=== PATIENT | female | born 1960 | race Caucasian/White ===

== ENCOUNTER 2017-07-11 10:40 | Inpatient (IN) | payer OTHER ==
[~2017-07-11] VITALS: Ht 154.9 cm; Wt 61.4 kg
[~2017-07-11 10:40] MED LIST: BACTRIM1 TAB; BUSPIRONE HCL5 MG PO; FAMOTIDINE20 MG; FAMOTIDINE40 MG PO; IMDUR30 MG; ISOSORBIDE PO; LIPI20 PO; LISINOPRIL2.5 MG; LISINOPRIL2.5 MG PO; METRONIDAZOLE0.751 VG; MOBIC15 MG PO; MOTRIN600 MG PO; ONDANSETRON8 M1 PO; PRI20 PO; SIMVASTATIN10 M1; SIMVASTATIN10 M1 PO; SMZ-TMP DS1 TAB PO; ZES5 PO; ZOF4
--- NOTE | 2017-07-11 10:54 | NUR ---
TO LOBBY, NO DISTRESS NOTED. AWAITING FOR BED AVAILABILITY
--- NOTE | 2017-07-11 11:05 | NUR ---
DR. BOOKER AT BEDSIDE FOR MSE
--- NOTE | 2017-07-11 11:15 | NUR ---
PT STS UNABLE TO PROVIDE URINE SAMPLE AT THIS TIME, INST PT TO PROVIDE URINE SAMPLE SOON POSSIBLE, PT VERBALIZED UNDERSTANDING, CALL LIGHT WITHIN REACH, WILL CONTINUE TO MONITOR
--- NOTE | 2017-07-11 11:20 | NUR ---
LAB AT BEDSIDE FOR BLOOD DRAW
--- NOTE | 2017-07-11 11:28 | NUR ---
PORTABLE ULTRASOUND AT BEDSIDE AT THIS TIME
[2017-07-11 11:39] LABS: CALCIUM 8.4 mg/dL (8.5-10.1); CARBON DIOXIDE 29.7 mmol/L (21-32); CHLORIDE SERUM 107 mmol/L (98-107); CREATININE SERUM 0.7 mg/dL (0.6-1.0); GFR1 > 60 mL/min; GLUCOSE SERUM 95 mg/dL (74-106); POTASSIUM SERUM 3.7 mmol/L (3.5-5.1); SODIUM SERUM 141 mmol/L (136-145)
--- NOTE | 2017-07-11 11:42 | NUR ---
MEDICATIONS ADMINISTERED PER MD ORDER, PLEASE SEE EMAR, PT TOLERATED WELL, PT RESTING IN BED IN A POSITION OF COMFORT, CALL LIGHT WITHIN REACH
[2017-07-11 11:44] LABS: ALBUMIN 3.5 g/dL (3.4-5.0); ALKALINE PHOSPHATASE 151 U/L (46-116); ALT/SGPT 39 U/L (14-59); AST/SGOT 33 U/L (15-37); BILIRUBIN TOTAL 0.3 mg/dL (0.20-1.00); LIPASE 335 IU/L (73-393); TOTAL PROTEIN, SERUM 7.2 g/dL (6.4-8.2)
[2017-07-11 11:45] LABS: BASOPHIL % 0.6 % (0-2); PLATELET COUNT 210 x10^3mcL (130-400)
--- NOTE | 2017-07-11 12:21 | NUR ---
PT AMBULATED WITH STEADY GAIT TO RESTROOM TO PROVIDE A URINE SAMPLE AT THIS TIME
--- NOTE | 2017-07-11 12:29 | NUR ---
PT RESTING IN BED IN A POSITION OF COMFORT, IVF CURRENTLY INFUSING AT THIS TIME, URINE COLLECTED AND SENT TO LAB, CALL LIGHT WITHIN REACH
[2017-07-11 12:51] LABS: microscopic required? YES; urine erythrocyte TRACE (NEGATIVE)
--- NOTE | 2017-07-11 13:07 | NUR ---
PER PT NO CHANGE IN HER HOME MEDICATIONS FROM LAST YEAR THAT WAS KEPT ON CHART
--- NOTE | 2017-07-11 13:34 | NUR ---
MRSA SWAB COLLECTED AND SENT TO LAB
--- NOTE | 2017-07-11 13:43 | NUR ---
REPORT GIVEN TO NITO BAUMAN WHO TOOK REPORT FOR NITO NGUYEN TELE FLOOR TO ASSUME CARE OF PT AFTER TRANSPORT
--- NOTE | 2017-07-11 14:18 | NUR ---
REC'D PT FROM ER VIA [facility]. PT IS AAOX4. C/O MILD DIZZINESS AND FONTAINE. TELE #26 SR WITH ELEVATED T-WAVE. PT C/O 8/10 CHEST PAIN. LUNG SOUNDS CLEAR. NO SOB NOTED. IV NOTED TO LAC. INTACT AND PATENT. ORIENTED PT TO CALL LIGHT. BED IN LOWEST POSITION. WILL ENDORSE TO PRIMARY RN.
[2017-07-11 14:27] VITALS: BP 131/56
[2017-07-11 14:41] LABS: MAGNESIUM 1.8 mg/dL (1.8-2.4); PHOSPHOROUS 2.9 mg/dL (2.5-4.9); T3 TOTAL 0.98 ng/mL
[2017-07-11 14:49] LABS: FREE T4 1.06 ng/dL (0.76-1.46); FREE THYROXINE INDEX 2.7 ug/dL (1.4-4.5); T4(THYROXINE) 7.4 ug/dL (4.7-13.3)
[2017-07-11 15:14] VITALS: BP 131/56
--- NOTE | 2017-07-11 17:59 | NUR ---
PT RESTING IN BED WITH NO APPARENT SIGNS OF DISTRESS. DENIES CHEST PAIN/PRESSURE AT THIS TIME. DENIES PAIN AT THIS TIME. RESPIRATIONS EQUAL AND UNLABORED BILAT. DENIES SOB. BED IN LOW POSITION. EDUCATED ON USING CALL LIGHT. CALL LIGHT IN REACH.
--- NOTE | 2017-07-11 19:32 | NUR ---
REC'D PT FROM DAY NURSE. PT RESTING IN BED. AAOX4, SPEECH CLEAR, ETHIOPIAN SPEAKING, FOLLOWS COMMANDS. NO SIGNS OF DISTRESS NOTED. BREATHING EVEN/UNLABORED ON RA. ON TELE 26. DENIES CP, DIZZINESS, OR PALPITATIONS. NO EDEMA NOTED. DENIES ABD PAIN, TENDERNESS, OR N/V. VOIDING FREELY. AMBULATORY. SKIN INTACT. DENIES PAIN OR DISCOMFORT AT THIS TIME. ONLY C/O HUNGER. WILL GIVE FOOD AFTER CHECKING BLOOD SUGAR. IV TO LAC PATENT AND INFUSING, SITE WNL. CALL LIGHT WITHIN EACH, BED AT LOWEST POSITION. WILL CONTINUE TO MONITOR.
--- NOTE | 2017-07-11 20:38 | NUR ---
PT ON CCHO DIET. BS 128. SANDWICH GIVEN.
[2017-07-11 21:53] VITALS: BP 109/70
--- NOTE | 2017-07-12 00:07 | NUR ---
PT RESTING IN BED WITH EYES CLOSED. NO SIGNS OF DISTRESS NOTED. BREATHING EVEN/UNLABORED ON RA. CALL LIGHT WITHIN REACH, BED AT LOWEST POSITION. WILL CONTINUE TO MONITOR.
--- NOTE | 2017-07-12 02:32 | NUR ---
PT AWAKE. RESTING IN BED. C/O FONTAINE 08/08. TYLENOL GIVEN PER ORDER. NO SIGNS OF DISTRESS NOTED. BREATHING EVEN/UNLABORED ON RA. NO OTHER COMPLAINTS AT THIS TIME. UDS COLLECTED. CALL LIGHT WITHIN REACH, BED AT LOWEST POSITION. WILL CONTINUE TO MONITOR.
[2017-07-12 02:57] LABS: AMPHETAMINE QUAL UR POSITIVE (NEG <=1000)
--- NOTE | 2017-07-12 05:42 | NUR ---
PT RESTING IN BED. C/O MILD FONTAINE AND MILD STERNAL CP, BOTH TOLERABLE AT THIS TIME. NO SIGNS OF DISTRESS NOTED. BREATHING EVEN/UNLABORED ON RA. BS 87, NO COVERAGE. NO SIGNIFICANT CHANGES DURING SHIFT. CALL LIGHT WITHIN REACH, BED AT LOWEST POSITION. WILL ENDORSE TO DAY NURSE.
--- NOTE | 2017-07-12 07:55 | NUR ---
AWAKE,ALERT AND ORIENTED. DENIES CHEST PAIN AT THIS TIME. CALL LIGHT W/ IN REACH,NO ACUTE DISTRESS NOTED. CONT. IV FLUIDS AND IV ANTIBIOTIC ORDERED. AMBULATED IN THE BATHROOM AND VOIDING WELL.WILL CONT. PLAN OF CARE.
--- NOTE | 2017-07-12 08:55 | NUR ---
DR. SALAS WAS HERE AND MADE ROUNDS W/ OTHER MEDICAL STAFF AND UPDTATED PT. PLAN OF CARE.
--- NOTE | 2017-07-12 09:00 | NUR ---
PT. C/O HEAD ACHE MEDICATED W/ TYLENOL ORDERED.MADE PT. COMFORTABLE IN BED. CALL LIGHT W/ IN REACH.
[2017-07-12 09:15] VITALS: BP 131/81
[2017-07-12 13:23] VITALS: BP 129/72
--- NOTE | 2017-07-12 15:30 | NUR ---
PT. C/O FONTAINE AGAIN AND SHE REQUESTED STRONGER MEDS GIVEN NORCO ORDERED. AND MADE COMFORTABLE IN BED.
[2017-07-12 16:29] VITALS: BP 124/80
--- NOTE | 2017-07-12 17:00 | NUR ---
PT, SLEEP WELL THE WHOLE AFTERNOON AFTER PAIN MEDS WAS GIVEN. NO ACUTE DISTRESS NOTED.CALL LIGHT W/ IN REACH.
--- NOTE | 2017-07-12 18:24 | NUR ---
PT. RESTING COMFORTABLY IN BED. DENIES ANY PAIN ,CALL LIGHT W/ IN REACH.
--- NOTE | 2017-07-12 20:00 | NUR ---
RECEIVED PT IN BED, ALERT AND ORIENTED. ABLE TO VERBALIZE NEEDS AND FOLLOW COMMANDS.DENIES HEADACHE/DIZZINESS. RESP. EVEN AND UNLABORED. ON ROOM AIR, NO DISTRESS NOTED. AFEBRILE AND VITAL SIGNS STABLE. SB/SR ON THE MONITOR,DENIES CHEST PAIN OR ANY DISCOMFORT AT THIS TIME.IVF, NS AT 60ML/HR, INATCT AND INFUSING VIA LAC, SITE CLEAR. AMBULATORY. VOIDING FREELY. ASSISTED WITH HS CARE. CALL LIGHT WITHIN REACH. WILL CONTINUE TO MONITOR.
[2017-07-12 21:12] VITALS: BP 108/60
--- NOTE | 2017-07-13 00:34 | NUR ---
APPEARS ASLEEP, WITH EYES CLOSED, EASILY AROUSABLE. RESP. EVEN AND UNLABORED. NO DISTRESS NOTED. WILL CONTINUE TO MONITOR.
[2017-07-13 05:34] VITALS: BP 120/81
--- NOTE | 2017-07-13 06:38 | NUR ---
SLEPT WELL. NO COMPLAINTS NOTED. AFEBRILE AND VITAL SIGNS STABLE. RESP. EVEN AND UNLABORED. NO DISTRESS NOTED.DENIES CP OR ANY DISCOMFORT AT THIS TIME. IVF INTACT AND INFUSING WELL, SITE CLEAR.KEPT COMFORTABLE. WILL ENDORSE TO INCOMING NURSE.
[2017-07-13 07:17] LABS: BASOPHIL % 0.4 % (0-2); PLATELET COUNT 194 x10^3mcL (130-400); RED CELL DISTRIBUTION WIDTH 13.6 % (11.5-14.5)
--- NOTE | 2017-07-13 07:55 | NUR ---
AWAKE,ALERT AND ABLE TO VERBALIZED NEEDS.AMBULATED IN THE BATHROOM AND VOIDING WELL,DENIES ANY PAIN AT THIS TIME. CALL LIGHT W/ IN REACH.CONT. IV FLUIDS ORDERED.WILL CONT. PLAN OF CARE.
[2017-07-13 08:30] VITALS: BP 110/69
--- NOTE | 2017-07-13 09:00 | NUR ---
DR. SALAS HERE W/ OTHER MEDICAL STAFFS MADE ROUNDS AND UPDATED PT. PLAN OF CARE.
[2017-07-13] MEDS ORDERED: LAC PO (10:52)
[2017-07-13] MEDS ORDERED: AUG500 PO (10:52)
--- NOTE | 2017-07-13 12:30 | NUR ---
AMBULATED IN [address] SHILOH. WELL NO ACUT EDISTRESS NOTED.
--- NOTE | 2017-07-13 13:00 | NUR ---
DR. TRACY HERE AND SEEN THE PT. W/ NEW ORDERS OK PT. TO GO HOME AND PT. AWARE AND AWAITING FOR RIDE.
[2017-07-13] MEDS ORDERED: MOT600 PO (13:26)
--- NOTE | 2017-07-13 14:30 | NUR ---
DISCHARGED INSTRUCTIONS AND PRESCRIPTION GIVEN AND DISCUSSED TO PT/DAUGHTER AND VERBALIZED UNDERSTANDING OF INSTRUCTION GIVEN . PT. WENT HOME W/ STABLE CONDITION AMBULATORY ACC. W/ HER DAUGHTER NO ACUTE DISTRESS NOTED ,ESCORTED BY [facility]ERIN[facility] SMALL ANIMAL IN THE LOBBY.
== END 2017-07-13 14:21 | disposition home or self-care (01) | DRG 243 ==
LOC: ED 10:40 → DU 13:01
PROVIDERS: Emergency Medicine; ADMIT Family Medicine
DX: K21.9 Gastro-esophageal reflux disease without esophagitis (principal); E11.65 Type 2 diabetes mellitus with hyperglycemia; K76.0 Fatty (change of) liver, not elsewhere classified; M94.0 Chondrocostal junction syndrome [Tietze]; E83.39 Other disorders of phosphorus metabolism; E44.1 Mild protein-calorie malnutrition; N39.0 Urinary tract infection, site not specified; F11.10 Opioid abuse, uncomplicated; F15.10 Other stimulant abuse, uncomplicated; I10 Essential (primary) hypertension; E78.00 Pure hypercholesterolemia, unspecified; Z53.29 Procedure and treatment not carried out because of patient's decision for other reasons; E03.9 Hypothyroidism, unspecified; Z88.6 Allergy status to analgesic agent; Z79.899 Other long term (current) drug therapy; Z68.25 Body mass index [BMI] 25.0-25.9, adult
CPT/HCPCS: 82962; 83880; 84439; J0696; J1956; J3010; J7030; Q0092

== ENCOUNTER 2017-08-25 07:09 | Emergency (ER) | payer OTHER ==
[~2017-08-25] VITALS: Ht 152.4 cm; Wt 64.1 kg
[~2017-08-25 07:09] MED LIST changes: +AUG500 PO; +LAC PO; +MOT600 PO
[2017-08-25 08:54] VITALS: BP 132/78
== END 2017-08-25 09:16 | disposition home or self-care (01) ==
LOC: ED 07:09
DX: S29.9XXA Unspecified injury of thorax, initial encounter (principal); E89.0 Postprocedural hypothyroidism; F12.90 Cannabis use, unspecified, uncomplicated; E78.00 Pure hypercholesterolemia, unspecified; F17.210 Nicotine dependence, cigarettes, uncomplicated; Z71.6 Tobacco abuse counseling; W20.8XXA Other cause of strike by thrown, projected or falling object, initial encounter; Y93.89 Activity, other specified; Y92.89 Other specified places as the place of occurrence of the external cause; Y99.8 Other external cause status
CPT/HCPCS: 99406

== ENCOUNTER 2018-06-27 14:04 | Emergency (ER) | payer OTHER ==
[~2018-06-27] VITALS: Ht 152.4 cm; Wt 64.4 kg
[2018-06-27 14:13] VITALS: Ht 152.4 cm; Wt 64.4 kg
[2018-06-27 15:46] LABS: BASOPHIL % 0.4 % (0-2); PLATELET COUNT 202 x10^3mcL (130-400); RED CELL DISTRIBUTION WIDTH 13.8 % (11.5-14.5)
[2018-06-27 15:56] LABS: CALCIUM 8.1 mg/dL (8.5-10.1); CARBON DIOXIDE 32.6 mmol/L (21-32); CHLORIDE SERUM 107 mmol/L (98-107); CREATININE SERUM 0.7 mg/dL (0.6-1.0); GFR1 > 60 mL/min; GLUCOSE SERUM 112 mg/dL (74-106); POTASSIUM SERUM 4.2 mmol/L (3.5-5.1); SODIUM SERUM 143 mmol/L (136-145)
[2018-06-27 16:04] LABS: ALKALINE PHOSPHATASE 134 U/L (46-116); ALT/SGPT 32 U/L (14-59); AMYLASE 88 U/L (25-115); AST/SGOT 22 U/L (15-37); BILIRUBIN TOTAL 0.2 mg/dL (0.20-1.00); LIPASE 413 IU/L (73-393); TOTAL PROTEIN, SERUM 6.5 g/dL (6.4-8.2)
[2018-06-27 16:21] LABS: ALBUMIN 3.2 g/dL (3.4-5.0)
[2018-06-27 18:56] LABS: UA SPECIFIC GRAVITY 1.025 (1.005-1.035); microscopic required? YES; urine erythrocyte NEGATIVE (NEGATIVE)
[2018-06-27 19:19] VITALS: BP 101/63
== END 2018-06-27 19:19 | disposition home or self-care (01) ==
LOC: ED 14:04
PROVIDERS: Specialist
DX: R10.33 Periumbilical pain (principal); R11.10 Vomiting, unspecified; R19.7 Diarrhea, unspecified
CPT/HCPCS: J3010; J7030; Q0162

== ENCOUNTER 2019-01-08 10:58 | Emergency (ER) | payer OTHER ==
[~2019-01-08] VITALS: Ht 162.6 cm; Wt 64.6 kg
[2019-01-08 11:22] VITALS: Ht 162.6 cm; Wt 64.6 kg
[2019-01-08 13:21] VITALS: BP 141/73
== END 2019-01-08 13:22 | disposition home or self-care (01) ==
LOC: ED 10:58
DX: S22.019A Unspecified fracture of first thoracic vertebra, initial encounter for closed fracture (principal); S39.012A Strain of muscle, fascia and tendon of lower back, initial encounter; S13.9XXA Sprain of joints and ligaments of unspecified parts of neck, initial encounter; I10 Essential (primary) hypertension; E78.00 Pure hypercholesterolemia, unspecified; Z88.6 Allergy status to analgesic agent; V49.88XA Car occupant (driver) (passenger) injured in other specified transport accidents, initial encounter; Y93.I9 Activity, other involving external motion; Y92.413 State road as the place of occurrence of the external cause; Y99.8 Other external cause status
CPT/HCPCS: J2270; Q0162

== ENCOUNTER 2019-01-21 23:38 | Inpatient (IN) | payer OTHER ==
[~2019-01-21] VITALS: Ht 160 cm; Wt 67.1 kg
[2019-01-21 23:50] VITALS: Ht 160 cm; Wt 67.1 kg
--- NOTE | 2019-01-21 23:56 | NUR ---
EKG IN PROGRESS IN TRIAGE.
--- NOTE | 2019-01-22 01:21 | NUR ---
PT BIB SELF FOR C/O CHEST PAIN THAT BEGAN EARLIER AROUND 1700. PT DENIES ANY TRAUMA TO THE AREA OR ANYTHING TO PROVOKE THE PAIN. PT REPORTS THE PAIN FEELING " HEAVY" / "PRESSURE". PT REPORTS THIS HAS HAPPENED ONE OTHER TIME A LONG TIME AGO AND STS IT WAS DUE TO HER ANXIETY. PT REPORTS SOME SOB DUE TO PAIN FROM CHEST. PT IS A/O X4. PT IS LAYING IN GURNEY IN POSITION OF COMFORT. PT RESPS ARE E/U. PT IS ABLE TO AMBULATE SLOWLY WITH STEADY GAIT. MSE COMPLETED BY DR MARTE
[2019-01-22 01:24] LABS: BASOPHIL % 0.5 % (0-2); PLATELET COUNT 199 x10^3mcL (130-400); RED CELL DISTRIBUTION WIDTH 13.2 % (11.5-14.5)
[2019-01-22 01:32] LABS: CALCIUM 8.3 mg/dL (8.5-10.1); CARBON DIOXIDE 28.2 mmol/L (21-32); CHLORIDE SERUM 108 mmol/L (98-107); CREATININE SERUM 0.8 mg/dL (0.6-1.0); GFR1 > 60 mL/min; GLUCOSE SERUM 154 mg/dL (74-106); POTASSIUM SERUM 3.8 mmol/L (3.5-5.1); SODIUM SERUM 143 mmol/L (136-145)
[2019-01-22 01:40] LABS: ALKALINE PHOSPHATASE 152 U/L (46-116); ALT/SGPT 50 U/L (14-59); AMYLASE 61 U/L (25-115); AST/SGOT 30 U/L (15-37); BILIRUBIN TOTAL 0.25 mg/dL (0.20-1.00); CHOLESTEROL 173 mg/dL (<200); HDL CHOLESTEROL 50 mg/dL (40-60); LIPASE 302 IU/L (73-393); T4(THYROXINE) 6.3 ug/dL (4.7-13.3); TOTAL PROTEIN, SERUM 6.7 g/dL (6.4-8.2)
[2019-01-22 01:41] LABS: ALBUMIN 3.3 g/dL (3.4-5.0)
[2019-01-22] MEDS ORDERED: CHILDREN'S100 MG/52 (02:22)
--- NOTE | 2019-01-22 02:45 | NUR ---
PT REPORT GIVEN TO KAYLA BEAUCHAMP. QUESTIONS AND CONCERNS ADDRESSED.
[2019-01-22 03:20] VITALS: BP 114/61
--- NOTE | 2019-01-22 03:20 | NUR ---
ADMITTED THE PATIENT TO THE FLOOR,PT CAME TO THE FLOOR VIA [facility]ER[facility] AND WAS ACCOMPANIED BY THE NURSE,PT WAS RECIEVED TO THE BED MADE COMFORTABLE IN BED,ON INITIAL ASSESSMENT PATIENT IS AWAKE ALERT AND ORIENTED,REG RESP NO SOB,PT WAS PUT ON TELE MONITOR AND IN NSR NO ECTOPY OR CHEST PAIN AT THIS TIME,PT HAD HL TO THE HAND WITH THE SITE PATENT AND INTACT,PT ORIENTED TO THE CALL LIGHT BED CONTROL TELE MONITOR AND BATHROOM,PT VERBALIZED UNDERSTANDING,CALL LIGHT MADE CLOSE TO THE PATIENT AND WILL CONTINUE TO MONITOR.
--- NOTE | 2019-01-22 06:02 | NUR ---
PT WITH C/O OF H/A ARCHING INNATURE AT THE SCALE OF 510,PT WAS MEDICATED WITH TYLENOL 650 MG PO ORDER AND WILL CONTINUE TO MONITOR.
--- NOTE | 2019-01-22 08:00 | NUR ---
A/A/OX4. TELE#22; SR; HR = 69; NO C/O SHAUNNA PAIN NOW. NO RESP DSITRESS ON RA. O2 SAT 97%. HAD LIGHT BREAKFAST, HOLD LUNCH FOR STRESS TEST. IVHL'D TO [facility]. SITE CLEAN. AMBULATORY. CALL LIGHT IN REACH.
[2019-01-22 10:34] VITALS: BP 112/74
--- NOTE | 2019-01-22 12:00 | NUR ---
C/O DIZZINESS. BS = 65; APPLE JUICE AND CRAKERS GIVEN. CONTINUE MONITOR.
[2019-01-22 14:53] LABS: AMPHETAMINE QUAL UR NONE DETECTED (See below)
--- NOTE | 2019-01-22 16:23 | NUR ---
C/O HEADACHE ON 03/08. NO FEVER. TELENOL 650MG PO GIVEN. CONTINUE MONITOR.
--- NOTE | 2019-01-22 17:04 | NUR ---
STATED HEADACHE RELEAVED. AMBULATED IN [address]. GAIT STEADY.
[2019-01-22 17:36] LABS: microscopic required? NO
[2019-01-22 17:39] LABS: UA SPECIFIC GRAVITY >=1.030 (1.005-1.035); urine erythrocyte NEGATIVE (NEGATIVE)
[2019-01-22 18:07] VITALS: BP 110/64
--- NOTE | 2019-01-22 19:00 | NUR ---
CONDITION STABLE. DENIED CHEST PAIN. BRP. VOID FREELY. BM X2. ENODRSED CARE TO NOC NURSE.
--- NOTE | 2019-01-22 19:16 | NUR ---
DR. NGUYỄN CALLED TO ASK RESULTS OF STRESS TEST. REPORTED GIVEN. DR. NGUYỄN CLEARIFIED PATIENT OK TO DISCHARGE HOME. ENDORSED CARE TO [facility] NURSE.
--- NOTE | 2019-01-22 20:25 | NUR ---
PT RECIEVED AAO REG RESP NO SOB V/S STABLE,KEPT CLEAN AND DRY TO TOUCH,PT ON TELE MONITOR AND IN NSR NO ECTOPY OR CHEST PAIN AT THIS TIME,MADE COMFORTABLE IN BED,PT ON TELE MONITOR AND INNSR NO ECTOPY OR CHEST PAIN AT THIS TIME,CALL LIGHT EASY REACHED AND WILL CONTINUE TO MONITOR.
[2019-01-22 21:22] VITALS: BP 105/53
--- NOTE | 2019-01-23 02:24 | NUR ---
PT SLEEPING SOUNDLY KEPT CLEAN AND DRY TO TOUCH AND WILL CONTINUE TO MONITOR.
[2019-01-23 05:45] VITALS: BP 107/65
--- NOTE | 2019-01-23 06:32 | NUR ---
PT HAD A RESTING NIGHT NO CHANGE AT THIS TIME,WILL CONTINUE TO MONITOR.
--- NOTE | 2019-01-23 07:20 | NUR ---
RCD REPORT FROM NITO GARZA. PATIENT ASLEEP, REG RESPS. SALINE LOCK TO LFA. BED LOW, CALL LIGHT WITHIN REACH. WILL MONITOR.
--- NOTE | 2019-01-23 07:50 | NUR ---
SHIFT ASSESSMENT PERFORMED AND DOCUMENTED. WILL MONITOR.
--- NOTE | 2019-01-23 08:02 | NUR ---
PATIENT PROVIDED WITH ICE PACK FOR HEADACHE, 06/08, PER HER REQUEST. WILL BRING PAIN MEDICATION WHEN TIME, PATIENT AGREES. PATIENT SITTING UP IN BED EATING BREAKFAST. ADJUSTED TEMPERATURE IN ROOM HEATER WAS QUITE HIGH, PATIENT APPRECIATIVE.
--- NOTE | 2019-01-23 08:45 | NUR ---
PATIENT AMBULATING IN HALLWAY. REPORTS HEADACHE IS IMPROVED AT THIS TIME.
[2019-01-23 09:31] VITALS: BP 106/68
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
[2019-01-23 11:49] VITALS: BP 106/68
--- NOTE | 2019-01-23 12:50 | NUR ---
VERBAL AND WRITTEN DISCHARGE INSTRUCTIONS PROVIDED TO THE PATIENT REGARDING CHEST PAIN, OUTPATIENT FOLLOW UP, HEADACHE PAIN, SIGNS AND SYMPTOMS TO SEEK EMERGENCY MEDICAL ATTENTION. PATIENT VERBALIZED UNDERSTANDING OF ALL INSTRUCTIONS. IV TO LEFT WRIST REMOVED, SITE WITHOUT COMPLICATIONS. TELE 22 REMOVED, RETURNED TO TELEMETRY. PATIENT IN NO ACUTE DISTRESS. SON TO PICK PATIENT UP. PATIENT TO CALL WHEN READY TO GO.
== END 2019-01-23 13:00 | disposition home or self-care (01) | DRG 203 ==
LOC: ED 23:38 → DU 01-22 02:05
PROVIDERS: Emergency Medicine; ADMIT Internal Medicine Pulmonary Disease
DX: R07.89 Other chest pain (principal); E78.00 Pure hypercholesterolemia, unspecified; E78.5 Hyperlipidemia, unspecified; R51 Headache; I10 Essential (primary) hypertension; F17.210 Nicotine dependence, cigarettes, uncomplicated; E89.0 Postprocedural hypothyroidism; R73.03 Prediabetes
CPT/HCPCS: 82962; 83880; 99406; A9500; J1650; J2785; Q0092

== ENCOUNTER 2019-01-26 23:47 | Emergency (ER) | payer OTHER ==
[~2019-01-26] VITALS: Ht 162.6 cm; Wt 68.0 kg
[~2019-01-26 23:47] MED LIST changes: +CHILDREN'S100 MG/52
[2019-01-26 23:53] VITALS: Ht 162.6 cm; Wt 68.0 kg
[2019-01-27 02:03] VITALS: BP 106/59
== END 2019-01-27 02:03 | disposition home or self-care (01) ==
LOC: ED 23:47
DX: R51 Headache (principal); G89.29 Other chronic pain; I10 Essential (primary) hypertension; E78.00 Pure hypercholesterolemia, unspecified; Z98.890 Other specified postprocedural states; Z88.6 Allergy status to analgesic agent; V49.69XA Unspecified car occupant injured in collision with other motor vehicles in traffic accident, initial encounter; Y93.I9 Activity, other involving external motion; Y92.413 State road as the place of occurrence of the external cause; Y99.8 Other external cause status
CPT/HCPCS: J2270; Q0162

== ENCOUNTER 2019-03-08 00:33 | Emergency (ER) | payer OTHER ==
[~2019-03-08] VITALS: Ht 154.9 cm; Wt 64.9 kg
[2019-03-08 00:35] VITALS: Ht 154.9 cm; Wt 64.9 kg
[2019-03-08 01:11] LABS: PLATELET COUNT 228 x10^3mcL (130-400)
[2019-03-08 01:13] LABS: CALCIUM 8.7 mg/dL (8.5-10.1); CARBON DIOXIDE 26.4 mmol/L (21-32); CREATININE SERUM 1.1 mg/dL (0.6-1.0); POTASSIUM SERUM 3.2 mmol/L (3.5-5.1)
[2019-03-08 01:18] LABS: BILIRUBIN TOTAL 0.5 mg/dL (0.20-1.00); TOTAL PROTEIN, SERUM 7.4 g/dL (6.4-8.2)
[2019-03-08 03:32] VITALS: BP 106/60
== END 2019-03-08 03:32 | disposition home or self-care (01) ==
LOC: ED 00:33
PROVIDERS: Emergency Medicine
DX: K29.00 Acute gastritis without bleeding (principal); R51 Headache; I10 Essential (primary) hypertension; E78.00 Pure hypercholesterolemia, unspecified; Z98.890 Other specified postprocedural states; Z88.6 Allergy status to analgesic agent
CPT/HCPCS: J2765; Q0092

== ENCOUNTER 2019-06-06 04:40 | Emergency (ER) | payer OTHER ==
[~2019-06-06] VITALS: Ht 154.9 cm; Wt 68.0 kg
[2019-06-06 04:45] VITALS: Ht 154.9 cm; Wt 68.0 kg
[2019-06-06 08:08] VITALS: BP 110/68
== END 2019-06-06 08:27 | disposition home or self-care (01) ==
LOC: ED 04:40
DX: R10.9 Unspecified abdominal pain (principal); R19.7 Diarrhea, unspecified; R11.2 Nausea with vomiting, unspecified; I10 Essential (primary) hypertension; E78.00 Pure hypercholesterolemia, unspecified; F12.90 Cannabis use, unspecified, uncomplicated; Z98.890 Other specified postprocedural states; Z88.6 Allergy status to analgesic agent
CPT/HCPCS: J0500

== ENCOUNTER 2019-08-21 16:06 | Emergency (ER) | payer OTHER ==
[~2019-08-21] VITALS: Ht 154.9 cm; Wt 64.4 kg
[2019-08-21 16:11] VITALS: Ht 154.9 cm; Wt 64.4 kg
[2019-08-21 20:53] VITALS: BP 117/82
== END 2019-08-21 20:53 | disposition home or self-care (01) ==
LOC: ED 16:06
DX: M25.511 Pain in right shoulder (principal); X50.0XXA Overexertion from strenuous movement or load, initial encounter; Y93.89 Activity, other specified; Y92.89 Other specified places as the place of occurrence of the external cause; Y99.8 Other external cause status

== ENCOUNTER 2019-10-11 06:43 | Emergency (ER) | payer OTHER ==
[~2019-10-11] VITALS: Ht 154.9 cm; Wt 62.6 kg
[2019-10-11 07:03] VITALS: Ht 154.9 cm; Wt 62.6 kg
[2019-10-11 09:47] VITALS: BP 122/69
== END 2019-10-11 10:05 | disposition home or self-care (01) ==
LOC: ED 06:43
DX: J11.1 Influenza due to unidentified influenza virus with other respiratory manifestations (principal); I10 Essential (primary) hypertension; E78.00 Pure hypercholesterolemia, unspecified; Z88.6 Allergy status to analgesic agent; Z98.890 Other specified postprocedural states; Z90.89 Acquired absence of other organs
CPT/HCPCS: 87804; Q0092

== ENCOUNTER 2019-12-22 15:00 | Emergency (ER) | payer OTHER ==
[~2019-12-22] VITALS: Ht 154.9 cm; Wt 68.9 kg
[2019-12-22 15:26] VITALS: Ht 154.9 cm; Wt 68.9 kg
[2019-12-22 18:18] VITALS: BP 128/68
== END 2019-12-22 18:18 | disposition home or self-care (01) ==
LOC: ED 15:00
DX: M75.31 Calcific tendinitis of right shoulder (principal); M25.562 Pain in left knee; I10 Essential (primary) hypertension; E78.00 Pure hypercholesterolemia, unspecified; E03.9 Hypothyroidism, unspecified; Z90.89 Acquired absence of other organs; Z98.890 Other specified postprocedural states; Z88.6 Allergy status to analgesic agent
CPT/HCPCS: J1100; J1885

== ENCOUNTER 2020-01-01 10:17 | Emergency (ER) | payer OTHER ==
[~2020-01-01] VITALS: Ht 157.5 cm; Wt 69.9 kg
[2020-01-01 10:25] VITALS: BP 140/76; Ht 157.5 cm; Wt 69.9 kg
== END 2020-01-01 11:15 | disposition home or self-care (01) ==
LOC: ED 10:17
DX: H66.91 Otitis media, unspecified, right ear (principal); R51 Headache; R11.0 Nausea; I10 Essential (primary) hypertension; E78.00 Pure hypercholesterolemia, unspecified; Z88.6 Allergy status to analgesic agent

== ENCOUNTER 2020-01-09 12:05 | Emergency (ER) | payer OTHER ==
[~2020-01-09] VITALS: Ht 154.9 cm; Wt 73.9 kg
[2020-01-09 12:36] VITALS: Ht 154.9 cm; Wt 73.9 kg
[2020-01-09 14:09] VITALS: BP 128/63
== END 2020-01-09 14:09 | disposition home or self-care (01) ==
LOC: ED 12:05
DX: R07.89 Other chest pain (principal); R05 Cough; R51 Headache; I10 Essential (primary) hypertension; E78.00 Pure hypercholesterolemia, unspecified; Z98.890 Other specified postprocedural states; Z88.6 Allergy status to analgesic agent
CPT/HCPCS: Q0092

== ENCOUNTER 2020-01-20 21:05 | Inpatient (IN) | payer OTHER ==
[~2020-01-20] VITALS: Ht 154.9 cm; Wt 73.5 kg
[2020-01-20 21:45] LABS: BASOPHIL % 0.5 % (0-2); PLATELET COUNT 249 x10^3mcL (130-400); RED CELL DISTRIBUTION WIDTH 14.2 % (11.5-14.5)
[2020-01-20 21:49] LABS: ALBUMIN 3.6 g/dL (3.4-5.0); ALKALINE PHOSPHATASE 187 U/L (46-116); ALT/SGPT 74 U/L (14-59); AST/SGOT 35 U/L (15-37); BILIRUBIN TOTAL 0.2 mg/dL (0.20-1.00); CALCIUM 8.8 mg/dL (8.5-10.1); CARBON DIOXIDE 29.5 mmol/L (21-32); CHLORIDE SERUM 105 mmol/L (98-107); CREATININE SERUM 0.9 mg/dL (0.6-1.0); GFR1 > 60 mL/min; GLUCOSE SERUM 142 mg/dL (74-106); LIPASE 1350 IU/L (73-393); POTASSIUM SERUM 4.3 mmol/L (3.5-5.1); SODIUM SERUM 140 mmol/L (136-145); TOTAL PROTEIN, SERUM 7.3 g/dL (6.4-8.2)
[2020-01-21] VITALS (7 sets, daily range): BP systolic 92–138; BP diastolic 43–61
[2020-01-21 06:42] LABS: BASOPHIL % 0.2 % (0-2); PLATELET COUNT 236 x10^3mcL (130-400); RED CELL DISTRIBUTION WIDTH 14.3 % (11.5-14.5)
[2020-01-21 07:16] LABS: CALCIUM 8.1 mg/dL (8.5-10.1); CARBON DIOXIDE 26.6 mmol/L (21-32); CHLORIDE SERUM 106 mmol/L (98-107); CHOLESTEROL 156 mg/dL (<200); CHOLESTEROL/HDL RATIO 3.3; CREATININE SERUM 0.8 mg/dL (0.6-1.0); GFR1 > 60 mL/min; GLUCOSE SERUM 115 mg/dL (74-106); HDL CHOLESTEROL 48 mg/dL (40-60); LIPASE 463 IU/L (73-393); MAGNESIUM 2.2 mg/dL (1.8-2.4); POTASSIUM SERUM 4.5 mmol/L (3.5-5.1); SODIUM SERUM 140 mmol/L (136-145); TRIGLYCERIDES 152 mg/dL (<150)
[2020-01-22 06:25] VITALS: BP 113/63
[2020-01-22 06:43] LABS: BASOPHIL % 0.3 % (0-2); PLATELET COUNT 211 x10^3mcL (130-400); RED CELL DISTRIBUTION WIDTH 14.2 % (11.5-14.5)
[2020-01-22 07:23] LABS: ALKALINE PHOSPHATASE 139 U/L (46-116); ALT/SGPT 47 U/L (14-59); AST/SGOT 22 U/L (15-37); BILIRUBIN TOTAL 0.39 mg/dL (0.20-1.00); CALCIUM 8.2 mg/dL (8.5-10.1); CHLORIDE SERUM 109 mmol/L (98-107); CREATININE SERUM 0.8 mg/dL (0.6-1.0); GFR1 > 60 mL/min; GLUCOSE SERUM 98 mg/dL (74-106); LIPASE 218 IU/L (73-393); POTASSIUM SERUM 4.9 mmol/L (3.5-5.1); SODIUM SERUM 142 mmol/L (136-145)
[2020-01-22 07:29] LABS: ALBUMIN 2.7 g/dL (3.4-5.0); TOTAL PROTEIN, SERUM 6.1 g/dL (6.4-8.2)
[2020-01-22 08:23] VITALS: BP 115/49
[2020-01-22 12:02] VITALS: BP 123/53
[2020-01-22 16:57] VITALS: BP 136/55
[2020-01-22 19:30] VITALS: BP 126/60
[2020-01-23 04:38] VITALS: BP 109/58
[2020-01-23 07:16] LABS: BASOPHIL % 0.7 % (0-2); PLATELET COUNT 193 x10^3mcL (130-400); RED CELL DISTRIBUTION WIDTH 13.8 % (11.5-14.5)
[2020-01-23 08:05] VITALS: BP 132/60
[2020-01-23 08:24] LABS: ALKALINE PHOSPHATASE 133 U/L (46-116); ALT/SGPT 41 U/L (14-59); AST/SGOT 18 U/L (15-37); BILIRUBIN TOTAL 0.29 mg/dL (0.20-1.00); CALCIUM 8.3 mg/dL (8.5-10.1); CARBON DIOXIDE 27.8 mmol/L (21-32); CHLORIDE SERUM 110 mmol/L (98-107); CREATININE SERUM 0.9 mg/dL (0.6-1.0); GFR1 > 60 mL/min; GLUCOSE SERUM 88 mg/dL (74-106); MAGNESIUM 1.8 mg/dL (1.8-2.4); POTASSIUM SERUM 4.2 mmol/L (3.5-5.1); SODIUM SERUM 143 mmol/L (136-145)
[2020-01-23 08:29] LABS: ALBUMIN 2.9 g/dL (3.4-5.0); TOTAL PROTEIN, SERUM 6.1 g/dL (6.4-8.2)
[2020-01-23 11:56] VITALS: BP 134/60
[2020-01-23 16:42] VITALS: BP 142/70
[2020-01-23 20:29] VITALS: BP 130/60
[2020-01-24 05:48] VITALS: BP 139/62
[2020-01-24 06:48] LABS: BASOPHIL % 0.7 % (0-2); PLATELET COUNT 217 x10^3mcL (130-400); RED CELL DISTRIBUTION WIDTH 13.4 % (11.5-14.5)
[2020-01-24 06:55] LABS: ALKALINE PHOSPHATASE 176 U/L (46-116); ALT/SGPT 54 U/L (14-59); AST/SGOT 33 U/L (15-37); BILIRUBIN TOTAL 0.32 mg/dL (0.20-1.00); CALCIUM 8.7 mg/dL (8.5-10.1); CARBON DIOXIDE 29.8 mmol/L (21-32); CHLORIDE SERUM 109 mmol/L (98-107); CREATININE SERUM 0.9 mg/dL (0.6-1.0); GFR1 > 60 mL/min; GLUCOSE SERUM 84 mg/dL (74-106); POTASSIUM SERUM 4.4 mmol/L (3.5-5.1); SODIUM SERUM 143 mmol/L (136-145); TOTAL PROTEIN, SERUM 6.3 g/dL (6.4-8.2)
[2020-01-24 09:13] VITALS: BP 140/63
[2020-01-24 10:36] VITALS: BP 140/63
[2020-01-24 12:43] VITALS: BP 132/67
== END 2020-01-24 14:50 | disposition home or self-care (01) | DRG 282 ==
LOC: ED 21:05 → DU 23:14
PROVIDERS: Internal Medicine Pulmonary Disease; ADMIT Internal Medicine Pulmonary Disease
DX: K85.20 Alcohol induced acute pancreatitis without necrosis or infection (principal); K70.9 Alcoholic liver disease, unspecified; E78.00 Pure hypercholesterolemia, unspecified; E86.0 Dehydration; Y90.9 Presence of alcohol in blood, level not specified; K59.00 Constipation, unspecified; E78.5 Hyperlipidemia, unspecified; F10.10 Alcohol abuse, uncomplicated; K21.9 Gastro-esophageal reflux disease without esophagitis; Y90.0 Blood alcohol level of less than 20 mg/100 ml; Z79.1 Long term (current) use of non-steroidal anti-inflammatories (NSAID); Z90.89 Acquired absence of other organs; Z71.41 Alcohol abuse counseling and surveillance of alcoholic
CPT/HCPCS: C9113; G0378; G0480; J2270; J2405; J3475; J7030; J7042; J7050; Q0092

== ENCOUNTER 2020-01-25 12:36 | Emergency (ER) | payer OTHER ==
[~2020-01-25] VITALS: Ht 154.9 cm; Wt 71.7 kg
[2020-01-25 12:45] VITALS: Ht 154.9 cm; Wt 71.7 kg
[2020-01-25 14:27] LABS: BASOPHIL % 0.4 % (0-2); PLATELET COUNT 219 x10^3mcL (130-400); RED CELL DISTRIBUTION WIDTH 13.8 % (11.5-14.5)
[2020-01-25 14:47] LABS: CALCIUM 8.3 mg/dL (8.5-10.1); CARBON DIOXIDE 28.4 mmol/L (21-32); CHLORIDE SERUM 107 mmol/L (98-107); CREATININE SERUM 0.8 mg/dL (0.6-1.0); GFR1 > 60 mL/min; GLUCOSE SERUM 92 mg/dL (74-106); POTASSIUM SERUM 4.4 mmol/L (3.5-5.1); SODIUM SERUM 141 mmol/L (136-145)
[2020-01-25 14:51] LABS: ALKALINE PHOSPHATASE 217 U/L (46-116); ALT/SGPT 81 U/L (14-59); AST/SGOT 66 U/L (15-37); BILIRUBIN TOTAL 0.2 mg/dL (0.20-1.00); LIPASE 341 IU/L (73-393); TOTAL PROTEIN, SERUM 6.4 g/dL (6.4-8.2)
[2020-01-25 14:53] LABS: ALBUMIN 3.1 g/dL (3.4-5.0)
[2020-01-25 16:02] VITALS: BP 106/56
== END 2020-01-25 16:03 | disposition home or self-care (01) ==
LOC: ED 12:36
PROVIDERS: Emergency Medicine
DX: K29.70 Gastritis, unspecified, without bleeding (principal); I10 Essential (primary) hypertension; E78.00 Pure hypercholesterolemia, unspecified; Z98.890 Other specified postprocedural states; Z88.6 Allergy status to analgesic agent; Z90.89 Acquired absence of other organs
CPT/HCPCS: J2270; J2405; J7030

== ENCOUNTER 2020-02-12 23:23 | Emergency (ER) | payer OTHER ==
[~2020-02-12] VITALS: Ht 154.9 cm; Wt 73.7 kg
[2020-02-13 01:26] LABS: BASOPHIL % 0.7 % (0-2); PLATELET COUNT 217 x10^3mcL (130-400); RED CELL DISTRIBUTION WIDTH 13.3 % (11.5-14.5)
[2020-02-13 01:34] LABS: CALCIUM 8.5 mg/dL (8.5-10.1); CARBON DIOXIDE 28.7 mmol/L (21-32); CHLORIDE SERUM 108 mmol/L (98-107); CREATININE SERUM 0.9 mg/dL (0.6-1.0); GFR1 > 60 mL/min; GLUCOSE SERUM 131 mg/dL (74-106); SODIUM SERUM 144 mmol/L (136-145)
[2020-02-13 01:40] LABS: ALBUMIN 3.6 g/dL (3.4-5.0); ALKALINE PHOSPHATASE 145 U/L (46-116); ALT/SGPT 41 U/L (14-59); AMYLASE 63 U/L (25-115); AST/SGOT 30 U/L (15-37); BILIRUBIN TOTAL 0.21 mg/dL (0.20-1.00); LIPASE 281 IU/L (73-393); TOTAL PROTEIN, SERUM 6.7 g/dL (6.4-8.2)
[2020-02-13 03:06] VITALS: BP 106/53
== END 2020-02-13 03:06 | disposition home or self-care (01) ==
LOC: ED 23:23
PROVIDERS: Emergency Medicine
DX: G43.909 Migraine, unspecified, not intractable, without status migrainosus (principal); K62.5 Hemorrhage of anus and rectum; I10 Essential (primary) hypertension; E78.00 Pure hypercholesterolemia, unspecified; Z98.890 Other specified postprocedural states; Z90.89 Acquired absence of other organs; Z88.5 Allergy status to narcotic agent
CPT/HCPCS: 36415; J8597

== ENCOUNTER 2020-04-26 06:31 | Emergency (ER) | payer OTHER ==
[~2020-04-26] VITALS: Ht 157.5 cm; Wt 72.1 kg
[2020-04-26 06:39] VITALS: Ht 157.5 cm; Wt 72.1 kg
[2020-04-26 08:22] LABS: microscopic required? YES; urine erythrocyte 3+ (NEGATIVE)
[2020-04-26 10:14] LABS: CALCIUM 8.4 mg/dL (8.5-10.1); CARBON DIOXIDE 27.9 mmol/L (21-32); CHLORIDE SERUM 104 mmol/L (98-107); CREATININE SERUM 0.8 mg/dL (0.6-1.0); GFR1 > 60 mL/min; GLUCOSE SERUM 116 mg/dL (74-106); POTASSIUM SERUM 4.2 mmol/L (3.5-5.1); SODIUM SERUM 140 mmol/L (136-145)
[2020-04-26 10:19] LABS: ALBUMIN 3.7 g/dL (3.4-5.0); ALKALINE PHOSPHATASE 164 U/L (46-116); ALT/SGPT 35 U/L (14-59); AST/SGOT 25 U/L (15-37); BILIRUBIN TOTAL 0.4 mg/dL (0.20-1.00); TOTAL PROTEIN, SERUM 7.2 g/dL (6.4-8.2)
[2020-04-26 10:30] LABS: BASOPHIL % 0.4 % (0-2); PLATELET COUNT 213 x10^3mcL (130-400)
[2020-04-26 11:30] VITALS: BP 140/70
== END 2020-04-26 11:30 | disposition home or self-care (01) ==
LOC: ED 06:31
PROVIDERS: Specialist
DX: N39.0 Urinary tract infection, site not specified (principal); R31.0 Gross hematuria; I10 Essential (primary) hypertension; E78.00 Pure hypercholesterolemia, unspecified; Z90.89 Acquired absence of other organs; Z98.890 Other specified postprocedural states; Z88.6 Allergy status to analgesic agent
CPT/HCPCS: 36415